=== PATIENT | female | born 1950 | race American Indian/Alaskan Native ===

== ENCOUNTER 2016-10-02 10:25 | Emergency (ER) | payer MEDICARE, OTHER ==
--- NOTE | 2016-10-02 12:26 | XRay Report ---
LEFT ANKLE, 3 views: History: Pain after fall. Bone mineralization is normal. No acute osseous abnormality or joint pathology is identified. The soft tissues are unremarkable. IMPRESSION: No acute injury identified.
--- NOTE | 2016-10-02 12:26 | XRay Report ---
LUMBOSACRAL SPINE, 3 VIEWS: History: Back pain Findings: The vertebral bodies, disk spaces and posterior elements are intact. No compression deformity or malalignment. The SI joints are symmetric and unremarkable. There is moderate multilevel degenerative disc disease and facet arthropathy. 7 cm calcified uterine fibroid is noted. Impression: Lumbar spondylosis. No evidence for acute injury to the lumbar spine.
--- NOTE | 2016-10-02 12:27 | XRay Report ---
LEFT KNEE, 3 views: History: Pain. The bony architecture is intact without evidence of fracture or dislocation. There are moderate osteoarthritic changes. A large joint effusion is noted on the lateral image. IMPRESSION: Osteoarthritic changes. Large joint effusion.
--- NOTE | 2016-10-02 12:27 | XRay Report ---
LEFT HIP, 2 views: History: Pain. The bony architecture is intact without evidence of fracture or dislocation. No significant soft tissue abnormality is seen. IMPRESSION: Normal left hip.
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
--- NOTE | 2016-10-02 15:37 | XRay Report ---
FINAL REPORT PROCEDURE: XR FEMUR 2 LT TECHNIQUE: Four views left femur HISTORY: leg pain, fall COMPARISON: No prior studies are available for comparison. FINDINGS: Prior surgical change at the proximal left femur with lateral compression plate and 6 screws. Moderate degenerative changes of the left hip. Moderate to severe degenerative changes of the left knee evident. Large suprapatellar effusion. The superior inferior pole patellar osteophytic projections. IMPRESSION: No acute fracture seen
[2016-10-02] MEDS ORDERED: CATAPRES ONE (15:54)
[2016-10-02] MEDS ORDERED: CATAPRES PO ONE (15:55)
[2016-10-02 17:21] VITALS: BP 177/92
== END 2016-10-02 17:50 | disposition home or self-care (01) ==
LOC: ED 10:25
DX: M25.462 Effusion, left knee (principal); M25.552 Pain in left hip; I10 Essential (primary) hypertension; F17.200 Nicotine dependence, unspecified, uncomplicated; W08.XXXA Fall from other furniture, initial encounter; Y93.89 Activity, other specified; Y99.8 Other external cause status; Y92.098 Other place in other non-institutional residence as the place of occurrence of the external cause
CPT/HCPCS: 72100

== ENCOUNTER 2017-08-02 18:30 | Emergency (ER) | payer MEDICARE, OTHER ==
[2017-08-02] MEDS ORDERED: ASPIRIN PO ONE (19:14)
[2017-08-02 19:40] LABS: Basophils % (Auto) 0.4 % (0.0-1.8); Eosinophils # (Auto) 0.1 K/mm3 (0.0-0.4); Eosinophils % (Auto) 1.5 % (0.0-4.3); Hematocrit 40.1 % (30.3-42.9); Hemoglobin 13.3 gm/dl (10.1-14.3); Lymphocytes # (Auto) 1.4 K/mm3 (1.2-5.4); Lymphocytes % (Auto) 18.9 % (13.4-35.0); Mean Corpuscular HGB Conc 33 % (30-34); Mean Corpuscular Hemoglobin 28 pg (28-32); Mean Corpuscular Volume 85 fl (79-97); Monocytes # (Auto) 0.6 K/mm3 (0.0-0.8); Monocytes % (Auto) 8.1 % (0.0-7.3); Platelet Count 174 K/mm3 (140-440); Red Cell Distribution Width 13.3 % (13.2-15.2)
[2017-08-02 19:52] LABS: BUN/Creatinine Ratio 13; Blood Urea Nitrogen 9 mg/dL (7-17); Calcium 8.7 mg/dL (8.4-10.2); Hemolysis Index 0
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
[2017-08-02] MEDS ORDERED: ZESTRIL PO ONE (23:24)
[2017-08-03] MEDS ORDERED: APRESOLINE IV ONE (00:24)
--- NOTE | 2017-08-03 01:41 | Cat Scan Report ---
FINAL REPORT EXAM: CT ANGIO CHEST HISTORY: Chest pain. History of DVT. TECHNIQUE: CT angiogram of the chest was performed, with axial images obtained after the intravenous administration of contrast. Sagittal, coronal, and spiral [address]-MIP reformatted images were also obtained. No prior studies are available for comparison. FINDINGS: The heart is normal in size. There is mild dilatation of the distal aortic arch and proximal descending thoracic aorta, measuring 3.2 cm in diameter. This tapers to 2.9 cm in the descending thoracic aorta at the level of the main pulmonary artery. There is no aortic dissection. No filling defect is seen in the central or proximal segmental pulmonary arteries to suggest pulmonary embolus. There are subcentimeter prevascular, right paratracheal, and subcarinal lymph nodes. There is [id number] bilateral perihilar and suprahilar soft tissue, most likely reactive/post inflammatory changes. There is an ill-defined 1.6 cm low attenuating nodule in the right thyroid midpole. There is diffuse heterogeneity of the parenchyma throughout both lobes, with additional subcentimeter low attenuating nodules in the right upper and right lower poles. Examination of the lung parenchyma demonstrates multiple scattered faint 1-2 mm patchy nodular densities along the periphery throughout the bilateral lung mason, especially in the left upper lobe. These are nonspecific, though the appearance favors inflammatory/infectious process. There is additional minimal subpleural reticular interstitial lung disease. There is a 3 mm nodule in the posterior right lower lobe (series 2, image 82). There is moderate linear scarring at the right lung apex. There are superimposed mild dependent changes. There is no eduar infiltrate. There is no pleural or pericardial effusion. The trachea and visualized proximal airways are patent. Moderate spondylotic changes are seen in the spine. There is a nonspecific 1.2 cm ring-enhancing lesion in the medial aspect of the spleen. Differential possibilities include infection (including abscess), necrotic neoplasm, or metastatic disease. There are lobulated low attenuating lesions in the liver, measuring 2.2 cm in the posterior right lobe and 1.7 cm in the inferior right lobe. The internal contents measure fluid density, though the right posterior lesion demonstrates possible nodular peripheral enhancement, which would suggest hemangioma. There is an additional 8 mm low attenuating lesion in the left medial hepatic lobe, too small to characterize. The gallbladder is not discretely visualized. IMPRESSION: 1. No pulmonary embolism seen in the central or proximal segmental pulmonary arteries. 2. 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 3. 3 mm nodule in the posterior right lower lobe. Additional scattered faint 1-2 mm patchy nodular densities along the periphery of bilateral lung mason, nonspecific, but favor inflammatory/infectious process. Follow-up imaging in 3-6 months is recommended, as metastatic disease is not totally excluded. 4. Diffuse heterogeneity of the thyroid parenchyma with 1.6 cm low attenuating nodule in the right thyroid midpole, and additional subcentimeter right sided nodules. Ultrasound correlation is recommended. 5. Nonspecific 1.2 cm ring-enhancing lesion in medial aspect of the spleen. Additional indeterminate hepatic lesions as described. Given these findings, MRI exam with and without contrast is suggested for further evaluation.
[2017-08-03 02:05] VITALS: BP 199/111
[2017-08-03] MEDS ORDERED: PERCOCET 5/325 PO ONE (02:27)
== END 2017-08-03 02:42 | disposition home or self-care (01) ==
LOC: ED 18:30
DX: I16.0 Hypertensive urgency (principal); R91.1 Solitary pulmonary nodule; I10 Essential (primary) hypertension; F17.200 Nicotine dependence, unspecified, uncomplicated
CPT/HCPCS: 36415; 71275; 80048; 84484; 85025; 93005; 93010; 96374; 99284; J0360; Q9967

== ENCOUNTER 2020-09-18 18:06 | Emergency (ER) | payer MEDICARE, OTHER ==
[2020-09-18 19:43] LABS: Basophils # (Auto) 0.1 K/mm3 (0.0-0.1); Basophils % (Auto) 0.8 % (0.0-1.8); Eosinophils # (Auto) 0.1 K/mm3 (0.0-0.4); Eosinophils % (Auto) 2.2 % (0.0-4.3); Hematocrit 42.4 % (30.3-42.9); Hemoglobin 14.2 gm/dl (10.1-14.3); Lymphocytes # (Auto) 2.2 K/mm3 (1.2-5.4); Lymphocytes % (Auto) 32.6 % (13.4-35.0); Mean Corpuscular HGB Conc 34 % (30-34); Mean Corpuscular Volume 87 fl (79-97); Monocytes # (Auto) 0.6 K/mm3 (0.0-0.8); Monocytes % (Auto) 8.3 % (0.0-7.3); Platelet Count 187 K/mm3 (140-440); Red Blood Count 4.85 M/mm3 (3.65-5.03)
[2020-09-18 19:59] LABS: Alanine Aminotransferase 24 units/L (7-56); Albumin 4.1 g/dL (3.9-5); BUN/Creatinine Ratio 10; Blood Urea Nitrogen 9 mg/dL (7-17); Calcium 8.8 mg/dL (8.4-10.2); Hemolysis Index 6
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
[2020-09-18 22:34] VITALS: BP 157/72
--- NOTE | 2020-09-24 10:43 | Electrocardiograph Report ---
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
== END 2020-09-18 21:40 | disposition home or self-care (01) ==
LOC: ED 18:06
DX: M51.36 Other intervertebral disc degeneration, lumbar region (principal); I16.0 Hypertensive urgency; Z90.49 Acquired absence of other specified parts of digestive tract; Z98.890 Other specified postprocedural states; Z86.73 Personal history of transient ischemic attack (TIA), and cerebral infarction without residual deficits; Z79.899 Other long term (current) drug therapy
CPT/HCPCS: 36415; 71046; 80053; 84484; 85025; 93005

== ENCOUNTER 2021-05-03 13:07 | Emergency (ER) | payer MEDICARE, OTHER ==
[2021-05-03 16:43] LABS: Basophils # (Auto) 0.1 K/mm3 (0.0-0.1); Basophils % (Auto) 1.8 % (0.0-1.8); Eosinophils # (Auto) 0.1 K/mm3 (0.0-0.4); Eosinophils % (Auto) 1.2 % (0.0-4.3); Lymphocytes # (Auto) 2.4 K/mm3 (1.2-5.4); Lymphocytes % (Auto) 36.6 % (13.4-35.0); Monocytes # (Auto) 0.5 K/mm3 (0.0-0.8); Monocytes % (Auto) 7.4 % (0.0-7.3)
[2021-05-03 17:00] LABS: Alanine Aminotransferase 17 units/L (7-56); Albumin 4.3 g/dL (3.9-5); BUN/Creatinine Ratio 10; Blood Urea Nitrogen 10 mg/dL (7-17); Calcium 9.1 mg/dL (8.4-10.2); Hemolysis Index 19
[2021-05-03] MEDS ORDERED: SODIUM CHLORIDE 0.9% 1000 ML 1,000 ML IV ONE (17:25)
[2021-05-03 17:30] LABS: Hematocrit 47.9 % (30.3-42.9); Hemoglobin 15.1 gm/dl (10.1-14.3); Mean Corpuscular HGB Conc 32 % (30-34); Mean Corpuscular Volume 86 fl (79-97); Red Blood Count 5.57 M/mm3 (3.65-5.03); Red Cell Distribution Width 13.6 % (13.2-15.2)
[2021-05-03 17:52] LABS: Platelet Count 214 K/mm3 (140-440)
[2021-05-03] MEDS ORDERED: cloNIDine 0.1 MG TAB PO ONE (20:19)
[2021-05-03 21:21] VITALS: BP 153/82
[2021-05-03 23:39] LABS: Mucus,Urine FEW /HPF
[2021-05-04 00:40] LABS: Bilirubin,Urine Negative (Negative); Color,Urine Yellow (Yellow)
[2021-05-04 00:41] LABS: Blood,Urine Negative (Negative); Protein,Urine <15 mg/dL mg/dL (Negative); Urobilinogen,Urine < 2.0 mg/dL (<2.0)
== END 2021-05-03 21:00 | disposition home or self-care (01) ==
LOC: ED 13:07
DX: R42 Dizziness and giddiness (principal); E86.0 Dehydration; R00.2 Palpitations; Z90.49 Acquired absence of other specified parts of digestive tract
CPT/HCPCS: 36415; 71046; 80053; 81001; 83880; 84484; 85025; 87086; 93005; 93010; 96360; 99284

== ENCOUNTER 2021-06-30 11:32 | Emergency (ER) | payer MEDICARE, OTHER ==
[2021-06-30 11:47] VITALS: BP 132/77
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
--- NOTE | 2021-06-30 13:37 | XRay Report ---
CHEST 2 VIEWS INDICATION / CLINICAL INFORMATION: Chest Pain. COMPARISON: 05/03/21. FINDINGS: SUPPORT DEVICES: None. HEART / MEDIASTINUM: The heart size and pulmonary vasculature are normal. There is mild aortic tortuo sity without aneurysm. LUNGS / PLEURA: No significant pulmonary or pleural abnormality. No pneumothorax. ADDITIONAL FINDINGS: Chronic right rib deformities are stable. IMPRESSION: No acute abnormality or significant change. Signer Name: Dain Domínguez MD Signed: 06/30/2021 1:32 PM Workstation Name: [id number]
[2021-06-30 13:51] LABS: Bilirubin,Urine NEG (Negative); Blood,Urine NEG (Negative); Color,Urine Straw (Yellow); Mucus,Urine FEW /HPF; Protein,Urine <15 mg/dL mg/dL (Negative); RBC,Urine < 1.0 /HPF (0.0-6.0); Urobilinogen,Urine < 2.0 mg/dL (<2.0); WBC,Urine < 1.0 /HPF (0.0-6.0)
[2021-06-30 15:23] LABS: Basophils # (Auto) 0.1 K/mm3 (0.0-0.1); Basophils % (Auto) 0.9 % (0.0-1.8); Eosinophils # (Auto) 0.2 K/mm3 (0.0-0.4); Eosinophils % (Auto) 3.4 % (0.0-4.3); Hematocrit 41.6 % (30.3-42.9); Hemoglobin 13.5 gm/dl (10.1-14.3); Lymphocytes # (Auto) 1.9 K/mm3 (1.2-5.4); Lymphocytes % (Auto) 31.9 % (13.4-35.0); Mean Corpuscular HGB Conc 33 % (30-34); Mean Corpuscular Volume 86 fl (79-97); Monocytes # (Auto) 0.5 K/mm3 (0.0-0.8); Monocytes % (Auto) 8.7 % (0.0-7.3); Platelet Count 176 K/mm3 (140-440); Red Blood Count 4.83 M/mm3 (3.65-5.03); Red Cell Distribution Width 13.8 % (13.2-15.2)
[2021-06-30 15:47] LABS: Alanine Aminotransferase 20 units/L (7-56); Albumin 3.9 g/dL (3.9-5); BUN/Creatinine Ratio 11; Blood Urea Nitrogen 12 mg/dL (7-17); Hemolysis Index 12
--- NOTE | 2021-07-01 20:21 | Electrocardiograph Report ---
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
== END 2021-06-30 17:30 | disposition home or self-care (01) ==
LOC: ED 11:32
DX: N93.9 Abnormal uterine and vaginal bleeding, unspecified (principal); I10 Essential (primary) hypertension; Z86.73 Personal history of transient ischemic attack (TIA), and cerebral infarction without residual deficits; Z86.718 Personal history of other venous thrombosis and embolism; Z91.09 Other allergy status, other than to drugs and biological substances
CPT/HCPCS: 36415; 71046; 80053; 81001; 84484; 85025; 93005; 99284

== ENCOUNTER 2021-09-14 19:06 | Emergency (ER) | payer MEDICARE, OTHER ==
[2021-09-14] MEDS ORDERED: ASPIRIN 325 MG TAB PO ONE (19:16)
--- NOTE | 2021-09-14 19:46 | XRay Report ---
CHEST 1 VIEW INDICATION: CHEST PAIN. COMPARISON: 06/30/2021. FINDINGS: Support devices: None. Heart: Normal. Lungs/Pleura: There are low lung volumes. Mild interstitial opacities are noted, this may be due to l ow lung volumes. No consolidation or effusion. No pneumothorax. IMPRESSION: 1. No acute findings. Signer Name: Arvin Peacock MD Signed: 09/14/2021 7:42 PM Workstation Name: [id number]
[2021-09-14 20:19] LABS: Basophils % (Auto) 0.6 % (0.0-1.8); Eosinophils % (Auto) 0.6 % (0.0-4.3); Hemoglobin 15.2 gm/dl (10.1-14.3); Lymphocytes # (Auto) 1.5 K/mm3 (1.2-5.4); Lymphocytes % (Auto) 22.4 % (13.4-35.0); Mean Corpuscular HGB Conc 32 % (30-34); Mean Corpuscular Volume 86 fl (79-97); Monocytes # (Auto) 0.4 K/mm3 (0.0-0.8); Monocytes % (Auto) 5.8 % (0.0-7.3); Platelet Count 196 K/mm3 (140-440); Red Blood Count 5.48 M/mm3 (3.65-5.03); Red Cell Distribution Width 13.5 % (13.2-15.2)
[2021-09-14 20:34] LABS: Alanine Aminotransferase 12 units/L (7-56); Albumin 4.4 g/dL (3.9-5); BUN/Creatinine Ratio 8; Blood Urea Nitrogen 9 mg/dL (7-17); Calcium 9.6 mg/dL (8.4-10.2); Hemolysis Index 5
[2021-09-15] MEDS ORDERED: POTASSIUM CHLORIDE ER 20 MEQ TAB PO ONE (01:20)
[2021-09-15 02:26] LABS: Bilirubin,Urine NEG (Negative); Blood,Urine SM (Negative); Color,Urine Yellow (Yellow); Urobilinogen,Urine < 2.0 mg/dL (<2.0)
[2021-09-15 02:31] LABS: RBC,Urine < 1.0 /HPF (0.0-6.0)
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
[2021-09-15 04:24] VITALS: BP 153/82
--- NOTE | 2021-09-15 09:50 | Electrocardiograph Report ---
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
--- NOTE | 2021-09-15 09:55 | Electrocardiograph Report ---
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
== END 2021-09-15 04:03 | disposition home or self-care (01) ==
LOC: ED 19:06
DX: R07.9 Chest pain, unspecified (principal); E87.6 Hypokalemia; I10 Essential (primary) hypertension; Z86.73 Personal history of transient ischemic attack (TIA), and cerebral infarction without residual deficits; G89.29 Other chronic pain; M54.9 Dorsalgia, unspecified; I82.409 Acute embolism and thrombosis of unspecified deep veins of unspecified lower extremity; Z98.890 Other specified postprocedural states
CPT/HCPCS: 36415; 71045; 80053; 81001; 83735; 84484; 85025; 85379; 93005; 99284